=== PATIENT | female | born 1970 | race Hispanic/Latino ===

== ENCOUNTER 2022-11-30 13:37 | Emergency (ER) | payer OTHER ==
[~2022-11-30] VITALS: Ht 139.7 cm; Wt 82.6 kg
== END 2022-11-30 14:41 | disposition home or self-care (01) ==
LOC: ER 13:47
DX: M25.562 Pain in left knee (principal); R23.3 Spontaneous ecchymoses; W01.0XXA Fall on same level from slipping, tripping and stumbling without subsequent striking against object, initial encounter; Y93.01 Activity, walking, marching and hiking; Y92.89 Other specified places as the place of occurrence of the external cause
CPT/HCPCS: 93971; 99283

== ENCOUNTER 2024-08-22 12:37 | Emergency (ER) | payer OTHER | END 2024-08-22 13:26 | disposition short-term general hospital (02) | LOC: ER 13:26 | DX: R69 Illness, unspecified (principal) ==